=== PATIENT | male | born 1970 | race Native Hawaiian/Other Pacific Islander ===

== ENCOUNTER 2022-06-26 08:23 | Outpatient (CLI) | payer OTHER | END 2022-06-26 18:57 | disposition home or self-care (01) | LOC: CT 08:23 | PROVIDERS: ATTEND Internal Medicine | DX: R19.00 Intra-abdominal and pelvic swelling, mass and lump, unspecified site (principal); R10.84 Generalized abdominal pain | CPT/HCPCS: 36415; 82565; 84520; Q9963 ==